=== PATIENT | female | born 1965 | race American Indian/Alaskan Native ===

== ENCOUNTER 2017-04-22 10:39 | Day surgery (SDC) | payer BC ==
[2017-04-19 12:33] VITALS: BMI 45.2
[2017-04-19 13:08] VITALS: RESP 20
[2017-04-22] MEDS ORDERED: Propofol 10 mg/ml Inj (20 ML) ONE (12:18)
[2017-04-22] MEDS ORDERED: Midazolam 2 MG/2 ML VIAL ONE (12:18)
--- NOTE | 2017-04-22 12:18 | CP.SDSHP ---
Same Day Surgery H & P - History Proposed Procedure: Incision and drainage of right breast abscess Pre-Op Diagnosis: right breast abscess - Previous Medical/Surgical History Cardiac: Hypertension, Arrhythmia Endocrine/Metabolic: Diabetes, Obesity Previous Surgical History: gastric sleeve, cardaic ablation, lung Bx, breast I&D - Allergies Allergies: Allergies No Known Allergies Allergy (Verified 04/22/17 12:12) - Physical Exam Vital Signs: Vital Signs 04/22/17 04/22/17 12:02 12:05 Temperature 98.4 F Pulse Rate 52 L 52 L Respiratory 20 Rate Blood Pressure 125/66 O2 Sat by Pulse 100 Oximetry Mental Status: Alert & Oriented x3 Neuro: WNL Heart: WNL Lungs: WNL GI: WNL - {Optional Preform as Required} Breast: Other (R breast abscess) - Impression Impression: 51 y/o F w/ right breast abscess Pt. Evaluated Today:Candidate for Anesthesia & Procedure: Yes - Date & Time Date: 04/22/17 Time: 12:15 Short Stay Discharge - Short Stay Discharge Admitting Diagnosis/Reason for Visit: RT BREAST ABSCESS Disposition: HOME/ ROUTINE Referrals: Niall Webster MD [Primary Care Provider] - Santo Melo MD [Staff Provider] - Follow-up: follow up with Dr. Melo in office on Saturday Additional Instructions (Diet, Activity): regular diet no activity restriction
[2017-04-22] MEDS ORDERED: Lactated Ringer's 1,000 ML IV ONE (12:20)
[2017-04-22] MEDS ORDERED: ePHEDrine 50 mg/ml Inj ONE (13:02)
--- NOTE | 2017-04-22 13:14 | PCM.SURG1 ---
Surgeon's Initial Post Op Note - Surgeon's Notes Surgeon: Dr. Melo Litigation Claim Representative: Dr. Chua PGY2, Dr. Johnson PGY1 Type of Anesthesia: General LMA Pre-Operative Diagnosis: right breast abscess Operative Findings: see dictation Post-Operative Diagnosis: same Operation Performed: right breast incision and drainage Specimen/Specimens Removed: wound culture Estimated Blood Loss: EBL {In ML}: 5 Blood Products Given: N/A Post-Op Condition: Good Date of Surgery/Procedure: 04/22/17 Time of Surgery/Procedure: 12:20
[2017-04-22] MEDS ORDERED: Oxycodone/Acetaminophen 5/325 mg Tab PO PRN (13:15)
[2017-04-22] MEDS ORDERED: Lactated Ringer's 1,000 ML IV SCH (13:45)
[2017-04-22 14:35] VITALS: O2SAT 99
[2017-04-22 15:04] VITALS: TEMP 97.4
[2017-04-22 15:07] VITALS: BP 104/68; PULSE 65
--- NOTE | 2017-04-30 09:14 | OP ---
PROCEDURE DATE: 04/22/2017 PREOPERATIVE DIAGNOSIS: Recurrent right breast abscess. POSTOPERATIVE DIAGNOSIS: Recurrent right breast abscess. OPERATION PERFORMED: Incision and drainage of right breast abscess medial aspect. SURGEON: Santo Melo MD [employer] BACK TENDER: Dr. Chua and Dr. Johnson. TYPE OF ANESTHESIA: General anesthesia with LMA. OPERATIVE FINDINGS: Sebaceous abscess in the right breast. OPERATIVE PROCEEDINGS: As follows, the patient was taken to the operating room and placed supine on the operating room table. After being placed under anesthesia, the right breast was prepped and draped in a standard surgical fashion. A transverse incision was made over the abscess carried down through the skin and subcutaneous tissues using #11 blade. A large amount of pus and sebum was expressed. The opening in the breast was approximately 2 cm in length. A finger was inserted into the abscess and loculations were broken up. Once that was done, the area was copiously irrigated to remove any remaining material within the abscess. The abscess was then packed with 1/4-inch iodoform gauze and a sterile dressing was applied. The patient was then awakened from anesthesia, transported to recovery in satisfactory condition. Sponge, instrument, and needle counts were correct at end of the case. Santo Melo MD
== END 2017-04-22 14:32 | disposition home or self-care (01) ==
LOC: H.OPSURG 10:39
PROVIDERS: ATTEND Surgery
DX: N63.0 Unspecified lump in unspecified breast (principal); E11.9 Type 2 diabetes mellitus without complications; I10 Essential (primary) hypertension; E78.5 Hyperlipidemia, unspecified; E66.01 Morbid (severe) obesity due to excess calories; Z68.42 Body mass index [BMI] 45.0-49.9, adult; F41.9 Anxiety disorder, unspecified; K21.9 Gastro-esophageal reflux disease without esophagitis
CPT/HCPCS: 10060; 19020; 87070; J2250; J2704; J3010; J7030; J7120